=== PATIENT | female | born 1970 | race African-American/Black ===

== ENCOUNTER 2018-06-20 15:46 | Emergency (ER) | payer MEDICARE, OTHER ==
[~2018-06-20] VITALS: Ht 160 cm; Wt 98.4 kg
--- NOTE | 2018-06-20 16:44 | Emergency Room Report ---
History of Present Illness General Chief Complaint: Earache Source: Patient Present Illness HPI 47-year-old female patient presents ER complaining of left ear pain for the past 3 days. Patient reports that on Monday she had some ear wax in her ear that she was attempting to get out with a Q-tip. Reports that she "went deeper and deeper because it felt good". Reports that it then became painful when she went too for into her ear with Q-tip. Reports decreased hearing in that time. Reports she attempted to use ear wax remover following day without relief of symptoms. denies ear drainage. Denies recent. Denies fever, chest pain, shortness of breath. Allergies: Coded Allergies: TRAMADOL (Verified Allergy, Unknown, 06/20/18) SHAKY AND DIAPHORETIC Patient History Past Medical History: see triage record Last Menstrual Period: 10-17 Now: No Reviewed Nursing Documentation: PMH: Agreed; PSxH: Agreed Nursing Documentation-PMH Past Medical History: No History, Except For Hx Asthma: Yes Hx Diabetes: Yes Physical Exam Vital Signs Date Time Temp Pulse Resp B/P (MAP) Pulse Ox O2 Delivery O2 Flow Rate FiO2 06/20/18 16:25 99.0 62 18 98 Room Air Sp02 EP Interpretation: reviewed, normal General Appearance: well appearing, no apparent distress, alert, GCS 15, non- toxic Head: normocephalic, atraumatic Eyes: bilateral eye normal inspection, bilateral eye PERRL ENT: hearing grossly normal, normal pharynx, no angioedema, normal voice, TMs + canals normal - right ear, uvula midline, moist mucus membranes, other - left ear: Excessive cerumen Neck: full range of motion Respiratory: lungs clear, normal breath sounds, no rhonchi, no respiratory distress, no accessory muscle use, no wheezing, speaking full sentences Cardiovascular #1: regular rate, rhythm, no edema Musculoskeletal: back normal, digits/nails normal, gait/station normal, normal range of motion, non-tender Neurologic: alert, oriented x3, responsive, motor strength/tone normal, sensory intact Psychiatric: mood/affect normal Skin: no rash Medical Decision Making PA Attestation Dr. Mcdonnell is my supervising Physician whom patient management has been discussed with. Diagnostic Impression: Primary Impression: Cerumen impaction ER Course Pt presents to ED c/o ear pain. DDX considered but are not limited to rhinitis, sinusitis, otitis media, otitis externa, cerumen impaction. VITAL SIGNS are WNL, patient is afebrile. Ordered hydrogen peroxide. ED INTERVENTIONS: PE shows impacted cerumen in ear. No mastoid swellign or erythema, no rash or vesicles on face. Patient ear cleaned and flushed with saline. following ear lavage, no signs of otitis media or TM perforation. Likely cerumen impaction causing pain symptoms. Reports hearing symptoms improved. Patient instructed not to use Q-tips. Follow-up with primary care provider for further treatment and referral. Discuss referral to ENT. ER precautions given. DISCHARGE: Rx provided for Debrox At this time pt is stable for d/c to home. patient resting comfortably, no acute distress, nontoxic appearing, talking without difficulty, smiling. Patient to take medications as instructed Will provide with patient care instructions and any necessary prescriptions. Care plan and follow-up instructions provided. Patient instructed to follow-up with primary care in 3 - 5 days. Patient questions asked and answered. patient reports understanding and agreement treatment plan. ER precautions given. Patient instructed to return to ER immediately for any new or worsening of symptoms including but not limited to increasing SOB, persistent fever. - Please note that this Emergency Department Report was dictated using [employer] technology software, occasionally this can lead to erroneous entry secondary to interpretation by the dictation equipment. Last Vital Signs Date Time Temp Pulse Resp B/P (MAP) Pulse Ox O2 Delivery O2 Flow Rate FiO2 06/20/18 16:25 99.0 62 18 98 Room Air Status: improved Disposition: HOME, SELF-CARE Condition: Stable Scripts Carbamide Peroxide (DEBROX) 15 Ml Drops 5 DROP LEFT EAR TWICE A DAY for 4 Days, ML 0 Refills Prov: Vinicius Aguilera 06/20/18 Patient Instructions: Cerumen Impaction Additional Instructions: Followup with primary care provider in 3 -5 days. Discuss referral to ENT specialist. Do not use Q-tips. Take medications as directed. Patient questions asked and answered. ER precautions given, patient instructed to return to ER immediately for any new or worsening of symptoms. Vinicius Aguilera Jun 20, 2018 16:44
[2018-06-20 16:55] VITALS: BP 134/77
[2018-06-20] MEDS ORDERED: DEBROX15 M1 LEFT EAR (17:09)
[2018-06-20 17:17] VITALS: BP 118/98
== END 2018-06-20 19:22 | disposition home or self-care (01) ==
LOC: EMR 16:53
DX: H61.22 Impacted cerumen, left ear (principal); J45.909 Unspecified asthma, uncomplicated; E11.9 Type 2 diabetes mellitus without complications; Z88.6 Allergy status to analgesic agent
CPT/HCPCS: 99283